=== PATIENT | male | born 1985 | race Caucasian/White ===

== ENCOUNTER 2016-08-12 11:18 | Emergency (ER) | payer OTHER ==
[~2016-08-12] VITALS: Ht 180.3 cm; Wt 114.0 kg
[2016-08-12] MEDS ORDERED: LISINOPRIL40 MG PO (11:30)
[2016-08-12] MEDS ORDERED: LOPID600 MG PO (11:30)
[2016-08-12] MEDS ORDERED: NEURONTIN600 MG PO (11:30)
[2016-08-12] MEDS ORDERED: BACLOFEN20 MG PO (11:31)
[2016-08-12] MEDS ORDERED: SYNALAR120 GM TP (11:32)
[2016-08-12 12:41] LABS: HEMATOCRIT 38.8 % (38.0-50.0); MCH 28.5 PG (29.0-34.0); MCHC 34.3 G/DL (30.0-36.0); MCV 83.3 FL (86-99); MEAN PLAT.VOLUME 9.6 uM^3 (9.0-12.4); PLATELET COUNT 253 K/uL (156-360); RBC DIS.WIDTH-CV 11.9 % (11.8-14.6); RED BLOOD COUNT 4.66 M/uL (4.00-5.50); WHITE BLOOD COUNT 10.4 K/uL (4.1-10.2)
[2016-08-12 12:44] LABS: ADD MIUA? NO; BILIRUBIN NEGATIVE; BLOOD NEGATIVE; COLOR STRAW ((YELLOW)); GLUCOSE (STRIP) NEGATIVE; KETONES NEGATIVE; LEUKOCYTES NEGATIVE; NITRITE NEGATIVE; PROTEIN (STRIP) NEGATIVE; SPECIFIC GRAVITY 1.004 (1.000-1.030); UCUL ADDED? NO; UROBILINOGEN 0.2 MG/DL (0.2-1.0)
[2016-08-12 12:58] LABS: CHLORIDE 108 mEq/L (99-109); POTASSIUM 4.1 mEq/L (3.7-5.4); SODIUM 142 mEq/L (136-147)
[2016-08-12 13:00] LABS: GLUCOSE 106 mg/dL (70-99)
[2016-08-12 13:01] LABS: ANION GAP 10 MEQ/L (2-14)
[2016-08-12 13:02] LABS: TOTAL BILIRUBIN 0.5 mg/dL (0.0-1.0)
[2016-08-12 13:03] LABS: ALKALINE PHOSPHATASE 50 IU/L (3-129)
[2016-08-12 13:04] LABS: GFR ESTIMATE (CALCULATED) > 59 mL/min/
[2016-08-12 13:05] LABS: DIRECT BILIRUBIN 0.2 mg/dL (0.0-0.3); UREA NITROGEN (BUN) 10 mg/dL (9-23)
[2016-08-12 13:07] LABS: LIPASE 37 U/L (1.0-51.0)
[2016-08-12 16:40] VITALS: BP 146/80
== END 2016-08-12 16:42 | disposition short-term general hospital (02) ==
LOC: EME 11:18 → EDBD 11:18 → EME 16:42
PROVIDERS: Emergency Medicine
DX: K57.92 Diverticulitis of intestine, part unspecified, without perforation or abscess without bleeding (principal); R73.9 Hyperglycemia, unspecified; D72.829 Elevated white blood cell count, unspecified; R50.9 Fever, unspecified; E78.5 Hyperlipidemia, unspecified; I10 Essential (primary) hypertension
CPT/HCPCS: 74177; 80048; 80076; 81003; 83605; 83690; 85027; 87040; 99281; 99285; J0744; J1885; J2270; J2405; S0030